=== PATIENT | female | born 1985 | race Caucasian/White ===

== ENCOUNTER 2022-01-20 18:11 | Emergency (ER) | payer BC | END 2022-01-20 19:21 | disposition home or self-care (01) | LOC: VM.ED 18:11 | DX: S83.004A Unspecified dislocation of right patella, initial encounter (principal); Z88.0 Allergy status to penicillin; X50.9XXA Other and unspecified overexertion or strenuous movements or postures, initial encounter | CPT/HCPCS: 73562-RT; 99283 ==

== ENCOUNTER 2023-11-03 15:40 | Emergency (ER) | payer BC, MEDICAID ==
[2023-11-03 17:34] LABS: CORONAVIRUS COVID-19 NAA POSITIVE (NEGATIVE); INFLUENZA A NAA NEGATIVE (NEGATIVE); INFLUENZA B NAA NEGATIVE (NEGATIVE); RESPIRATORY SYNCYTIAL VIR NAA NEGATIVE (NEGATIVE)
[2023-11-03] MEDS: Albuterol 0.083% 2.5 MG/3 ML Neb Soln NEB ONE (17:55)
[2023-11-03] MEDS: methylPREDNISolone Sodium Succinate 125 MG/2 ML SDV IM ONE (17:55)
== END 2023-11-03 17:58 ==
LOC: VM.ED 15:40 → SUPCPDRO 15:40 → VM.ED 17:58
DX: J40 Bronchitis, not specified as acute or chronic (principal); Z88.0 Allergy status to penicillin; Z88.8 Allergy status to other drugs, medicaments and biological substances
CPT/HCPCS: 0241U; 71045; 96372; 99283; 99285; J2919; J7613-GY